=== PATIENT | male | born 1985 | race Caucasian/White ===

== ENCOUNTER 2023-07-16 11:20 | Emergency (ER) | payer SELFPAY ==
[2023-07-16 11:42] VITALS: BP 144/84; PULSE 79; RESP 20; TEMP 37.2; O2SAT 97; BMI 36.0
--- NOTE | 2023-07-16 11:44 | ED_ITS ---
HPI - General Adult General Chief complaint: General Medical Stated complaint: Frequent urination/Back pain Time Seen by Provider: 07/16/23 16:23 History of Present Illness HPI narrative: patient complains of 2 days of very frequent urination, he has had this before in the past and it resolved He denies any burning with urination, there is no discomfort there is no blood in the urine he has had no discharges, no nausea no vomiting no leg swelling no back pain no flank pain Related Data Previous Rx's Medication Instructions Recorded phenazopyridine 200 mg tablet 200 mg PO TID PRN urinary 07/16/23 (Pyridium) frequency #10 tabs Allergies Allergy/AdvReac Type Severity Reaction Status Date / Time No Known Allergies Allergy Unverified 07/16/23 11:40 [facility] Past Medical History Source: nursing notes reviewed Social History Social History Advance Directives: No Advance Directives Information Provided: No Physical Exam ED Vital Signs: Vital Signs - 24 hr 07/16/23 11:42 07/16/23 18:09 Temperature 99 F Pulse Rate 79 75 Respiratory Rate 20 14 Blood Pressure 144/84 H Pulse Oximetry 97 96 Oxygen Delivery Method Room Air Room Air BMI result Body Mass Index 36.0 general appearance is comfortable no acute distress The pharynx is clear with moist mucous membranes Neck is supple Respiratory no distress Abdomen is soft nontender The back no CVA tenderness Genital exam normal Rectal exam the prostate was not tender or enlarged Extremities no edema in legs, full range of motion x4 Skin no rashes Course Course Course Narrative: This is an RME: Additional HPI, ROS, PE not included below will be deferred to primary provider. This is a 24-mmsy-tyn-male, with no known medical problems, presenting to the emergency department with complaints of urinary frequency and right sided back pain x 1 week. No fevers wrist chills. No abdominal pain no dysuria, hematuria. No penile discharge. He is sexually active, no concerns for sexually transmitted infections. Plan: Labs, urine ordered. Patient with main complaint of urinary frequency with some mild low back pain worse with movement UA was normal with no sign of infection back pain was consistent with mild musculoskeletal low back pain there was no CVA tenderness Kidney function was normal, no other acute abnormalities in CBC and chemistry, glucose was normal Prostate exam was normal A postvoid residual was done and it was 90 I am not sure what is the reason for the patient's urinary frequency and he is advised to follow with urologist for further evaluation He refused STD testing as he is monogamous with 1 partner Medical Decision Making Lab Data MDM Lab Attestation statement: I reviewed the patient's lab results. 07/16/23 12:01 07/16/23 12:01 Labs: Lab Results 07/16/23 07/16/23 Range/Units 12:00 12:01 WBC 6.2 (4.8-10.8) X10*3/uL RBC 5.93 H (4.60-5.80) X10*6/uL Hgb 15.5 (14.0-18.0) g/dl Hct 48.2 (42.0-52.0) % MCV 81.3 (80.0-98.0) fL MCH 26.1 L (27.0-33.0) pg MCHC 32.2 (31.0-36.0) g/dl RDW 13.3 (11.0-16.0) % Plt Count 216 (160-400) X10*3/uL MPV 10.7 (9.4-12.4) fL Immature Gran % (Auto) 0.3 (0.0-0.4) % Neut % (Auto) 47.8 (45-73) % Lymph % (Auto) 34.1 (20-40) % [place] % (Auto) 11.0 (2-11) % Eos % (Auto) 5.7 H (0-4) % Baso % (Auto) 1.1 (0-2) % Lymph # (Auto) 2.1 (1.2-4.9) X10*3/uL [place] # (Auto) 0.7 (0.1-1.2) X10*3/uL Eos # (Auto) 0.4 (0.0-0.4) X10*3/uL Baso # (Auto) 0.1 (0.0-0.2) X10*3/uL Abs Immat Gran (auto) 0.02 (0.00-0.03) X10*3/uL Absolute Neuts (auto) 3.0 (2.0-8.3) x10*3/uL Absolute Nucleated RBC 0.000 (0.0-0.012) X10*3/uL Nucleated RBC % (auto) 0.0 (0.0-0.2) /100WBC Sodium 140 (135-145) mmol/L Potassium 4.2 (3.3-5.1) mmol/L Chloride 106 (96-108) mmol/L Carbon Dioxide 30 H (22-29) mmol/L Anion Gap 8 L (12-20) BUN 10 (9-16) mg/dL Creatinine 1.12 (0.5-1.4) mg/dL Estim Creat Clear Calc 108.2 Estimated GFR > 60 Random Glucose 82 (60-115) mg/dL Calcium 9.1 (8.4-10.2) mg/dL Total Bilirubin 0.5 (0.0-1.0) mg/dL Direct Bilirubin 0.1 (0.0-0.5) mg/dL AST 23 (5-37) U/L ALT 42 H (0-40) U/L Alkaline Phosphatase 78 (39-117) U/L Total Protein 7.4 (6.5-8.0) g/dL Albumin 4.2 (3.5-5.0) g/dL Lipase 26 (8-78) U/L Urine Color Yellow Urine Appearance Clear Urine pH 8.5 (5.0-9.0) Ur Specific [place] 1.020 (1.005-1.025) Urine Protein Negative (Neg-Trace) mg/dL Urine Glucose (UA) Negative (Negative) mg/dL Urine Ketones Negative (Negative) mg/dL Urine Blood Negative (Negative) Urine Nitrite Negative (Negative) Ur Leukocyte Esterase Negative (Negative) Discharge Plan Discharge Clinical Impression: Dysuria Patient Disposition: Home, Self-Care Additional Instructions: your urinalysis did not show any sign of infection, your sugar and kidney function were all normal, blood tests were all normal Your physical exam was normal As I am not sure of what is causing the frequent urination follow closely with urologist we will provide a number Return to the ER any time any worse condition or any concerns We will try the medication Macrobid which sometimes helps with bladder irritation and see if it helps her symptoms Prescriptions: New phenazopyridine [Pyridium] 200 mg tablet 200 mg PO TID PRN (Reason: urinary frequency) Qty: 10 0RF Referrals: Dennis Larsen MD [Physician] - ( urinary frequency) Interventions: ED Discharge Assessment Last Done: 07/16/23 18:46 Discharge Date/Time: 07/16/23 18:46
[2023-07-16 12:04] LABS: MANUAL DIFF FLAG NO
[2023-07-16 12:06] LABS: Appearance Urine Clear; Color Urine Yellow; Glucose Urine UA Negative (Negative); Leukocyte Esterase Urine Negative (Negative); Nitrite Urine Negative (Negative); PH 8.5 (5.0-9.0); Urine Blood Negative (Negative); Urine Ketones Negative (Negative); Urine Protein Negative (Neg-Trace)
[2023-07-16 12:18] LABS: Basophils Absolute Auto 0.1 X10*3/uL (0.0-0.2); Basophils Percent Auto 1.1 % (0-2); Eosinophils Absolute Auto 0.4 X10*3/uL (0.0-0.4); Eosinophils Percent Auto 5.7 % (0-4); Hematocrit 48.2 % (42.0-52.0); Hemoglobin 15.5 g/dl (14.0-18.0); Imm Gran Abs Auto 0.02 X10*3/uL (0.00-0.03); Imm Gran Pct Auto 0.3 % (0.0-0.4); Lymphocytes Absolute Auto 2.1 X10*3/uL (1.2-4.9); Lymphocytes Percent Auto 34.1 % (20-40); Mean Corpuscular HGB Conc 32.2 g/dl (31.0-36.0); Mean Corpuscular Hemoglobin 26.1 pg (27.0-33.0); Mean Corpuscular Volume 81.3 fL (80.0-98.0); Mean Platelet Volume 10.7 fL (9.4-12.4); Monocytes Absolute Auto 0.7 X10*3/uL (0.1-1.2); Neutrophils Percent Auto 47.8 % (45-73); Platelet Count 216 X10*3/uL (160-400); Red Blood Count 5.93 X10*6/uL (4.60-5.80); Red Cell Distribution Width 13.3 % (11.0-16.0); White Blood Count 6.2 X10*3/uL (4.8-10.8)
[2023-07-16 12:20] LABS: Alanine Aminotransferase 42 U/L (0-40); Albumin Level 4.2 g/dL (3.5-5.0); Alkaline Phosphatase 78 U/L (39-117); Anion Gap 8 (12-20); Aspartate Amino Transferase 23 U/L (5-37); Bilirubin Direct 0.1 mg/dL (0.0-0.5); Bilirubin Total 0.5 mg/dL (0.0-1.0); Blood Urea Nitrogen 10 mg/dL (9-16); Calcium 9.1 mg/dL (8.4-10.2); Carbon Dioxide 30 mmol/L (22-29); Chloride 106 mmol/L (96-108); Creatinine Clr Calc Pharmacy 108.2; Estimated Glomerular Filt Rate > 60; Glucose Random 82 mg/dL (60-115); Lipase 26 U/L (8-78); Potassium 4.2 mmol/L (3.3-5.1); Sodium 140 mmol/L (135-145); Total Protein 7.4 g/dL (6.5-8.0)
[2023-07-16 18:09] VITALS: PULSE 75; RESP 14; O2SAT 96
--- NOTE | 2023-07-16 18:10 | PC.NURSE ---
this RN did post void trial on patient, result of 97 mls. Tylor VASQUEZ aware
== END 2023-07-16 18:46 | disposition home or self-care (01) ==
PROVIDERS: Physician Assistant Medical; Emergency Provider Emergency Medicine
DX: R30.0 Dysuria (principal); R35.0 Frequency of micturition; M54.50 Low back pain, unspecified; Z79.899 Other long term (current) drug therapy
CPT/HCPCS: 36415; 51798; 80048; 80076; 81003; 83690; 85025; 99283; 99284

== ENCOUNTER 2025-02-18 13:08 | Outpatient (AMB) | payer OTHER, SELFPAY ==
[2025-02-18 13:12] VITALS: BP 124/94; PULSE 89; RESP 20; TEMP 37.1; O2SAT 97; BMI 37.4
--- NOTE | 2025-02-18 13:12 | A.OFFPC_ITS ---
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 Patient reports that he has not had a PCP since 2010, due to lack of insurance. Medical records have not been requested and have not been received. 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 His back pain has been affecting him for several years, noted to be increasingly severe. It recurs daily with notable morning stiffness, compounded by work-related activities. Relief was attempted through critical care technician, which modestly alleviated symptoms but did not resolve the underlying problem. Past investigations lacked imaging confirmation, leaving possible structural causes unexplored. Concurrently, his frequent urination, persistent since childhood, has significant impact on daily living, notably disrupting sleep and contributing to fatigue. While a bladder scan showed partial voiding, no definitive causes have been identified, and urological consultation remains pending. Constant urination: The patient had went to the ED for frequent urination, pvr was 90, refused STD. UA was unremarkable. He referred to Dr. Larsen but did not have insurance at the time Fatigue: reports that he is having random boost of energy that is short-lived each time. Reports that he is not sleeping well, constantly he has to get up to urinate. He also bought a new mattress but his lower back has been tight with constant pain Low back pain: reports that back pain has been going for couple years, but has been increasing. Reports that the back tightness is excruciating. Reports getting zepbound from a family member and he loss 14 pounds and the pain got better. Reports that he start gaining the weight back. [facility] Medical History (Updated 02/20/25 @ 00:44 by DEANNA Esquivel) Low back pain Frequent urination Surgical History No pertinent past surgical history Social History (Updated 02/18/25 @ 13:22 by Elli Paniagua STRIPE MARKER) Household Members: Family Household Members Other:: two children Housing: House Alcohol intake: current Alcohol intake frequency: a few times a week Patient Tobacco Use Status: Never used Tobacco e-Cigarette/Vaping Use: Currently Using service: No Current occupational status: unemployed Cognitive needs: No Hearing needs: No Vision needs: Yes (Glasses) Questionnaire PHQ-9 Over the last 2 weeks, how often have you been bothered by any of the following problems? 1. Little interest or pleasure in doing things: several days 2. Feeling down, depressed, or hopeless: not at all 3. Trouble falling or staying asleep, or sleeping too much: several days 4. Feeling tired or having little energy: nearly every day 5. Poor appetite or overeating: not at all 6. Feeling bad about yourself - or that you are a failure or have let yourself or your family down: not at all 7. Trouble concentrating on things, such as reading the newspaper or watching television: nearly every day 8. Moving or speaking so slowly that other people could have noticed. Or the opposite - being so fidgety or restless that you have been moving around a lot more than usual: several days 9. Thoughts that you would be better off or of hurting yourself in some way: not at all Total score: 9 Depression Screening Interpretation: Positive Depression Screening Done: Yes 87248 - PHQ-9 Billing: Yes Source: Developed by Drs. Rhys Kan, Juani Iglesias, Brandon Hernandes and colleagues, with an educational reno from [email or web address]. Thrive Questionnaire Date Thrive assessed: 02/18/25 I am a: Patient What is your living situation today?: I have a steady place to live Within the past 12 months, did the food you bought not last and you didn't have the money to get more?: Never true Within the past 12 months, did you worry whether your food would run out before you got money to buy more?: Never true Do you have trouble paying for medicines?: I choose not to answer this question Do you have trouble getting transportation to medical appointments?: No Do you have trouble paying your heating and electricity bill?: No Do you have trouble taking care of your child, family member or friend?: No Do you have trouble with day-to-day activities such as bathing, preparing meals, shopping, managing finances, etc.?: No Are you currently unemployed and looking for a job?: Yes Are you interested in more education?: No Please select the resources that you would like help with: None Currently or been in a relationship where the following occur: No concerns reported THRIVE Score: 0 AUDIT C Alcohol Use Questionnaire (AUDIT-C) 2. How many drinks containing alcohol do you have on a typical day when you are drinking?: 3 or 4 3. How often do you have six or more drinks on one occasion?: Never Total Score: 1 Score Reviewed/Action Taken: No DIMITRI-7 AMB Questionnaire DIMITRI-7 Date DIMITRI - 7 assessed: 02/18/25 Feeling nervous, anxious, or on edge: 0 = Not at all Not being able to stop or control worryin = Several days Worrying too much about different things: 1 = Several days Trouble relaxin = Nearly every day Being so restless that it is hard to sit still: 3 = Nearly every day Becoming easily annoyed or irritable: 1 = Several days Feeling afraid as if something awful might happen: 0 = Not at all Total DIMITRI-7 score (0-4 normal; 5-9 mild; 10-14 moderate; 15-21 severe): 9 Source: Developed by Juani Rock Kurt Kroenke and colleagues, with an educational reno from [email or web address]. DIMITRI-7 Assessment Billing DIMITRI-7 Assessment Tool: DIMITRI-7 Assessment 62797 Review of Systems Const Reports fatigue and Denies headache(s) Eyes Denies loss of vision ENT Denies vertigo, Denies dizziness, Denies headache(s) and Denies sore throat Card Denies chest pain, Denies leg edema and Denies lightheadedness Resp Denies cough, Denies hemoptysis and Denies wheezing GI Denies abdominal pain, Denies melena, Denies constipation, Denies diarrhea and Denies vomiting Denies dysuria, Reports urinary frequency, Denies urinary urgency and Reports other (Excessive urine production) Musc Reports back pain, Denies arthralgias, Denies joint swelling, Denies numbness, Reports radiating pain into limb (Right side-medial inner leg to yi) and Denies tingling Neuro Denies Abnormal speech present, Denies behavioral changes, Denies vertigo, Denies dizziness, Denies headache(s), Denies loss of vision, Denies memory loss, Denies numbness and Denies tingling Psych Denies anxiety, Denies behavioral changes, Denies depression, Denies memory loss and Denies panic attacks Endo Reports fatigue Samy/Lymph Denies easy bleeding and Denies easy bruising Aller/Immun Denies wheezing Physical exam (Primary Care) Vital Signs: Last Vital Signs Temp 98.7 F 02/18/25 13:12 Pulse 89 02/18/25 13:12 Resp 20 02/18/25 13:12 BP 124/94 H 02/18/25 13:12 Pulse Ox 97 02/18/25 13:12 Oxygen Delivery Method Room Air 02/18/25 13:12 BMI result Body Mass Index 37.4 Tobacco/Smoking Status: Tobacco use Status Tobacco use date assessed 02/18/25 02/18/25 13:27 Patient Tobacco Use Status Never used Tobacco 02/18/25 13:27 e-Cigarette/Vaping Use Currently Using 02/18/25 13:27 PHQ-9: PHQ-9 Score PHQ-9: Total score 9 02/18/25 14:16 Depression Screening Interpretation: Positive Thrive Assessment: Date of Thrive Assessment Date Thrive assessed 02/18/25 02/18/25 13:27 Currently or been in a relationship where the following occur: No concerns reported Const General: healthy appearing, no acute distress, alert and awake Nutritional Appearance: well nourished Orientation/consciousness: oriented to person, oriented to place and oriented to time HENMT Ears: TM's normal bilaterally General nose exam: Normal nasal mucous membranes and turbinates present Eyes Conjunctivae: conjunctivae normal Sclerae: sclerae normal Pupils: Equal, round and reactive pupils present Neck Neck: Yes no lymphadenopathy and Yes no JVD Thyroid: Thyroid normal Carotids: no bruits Resp Effort & Inspection: normal respiratory effort and not tachypneic Auscultation: no crackles, no rales, no rhonchi and no wheezes Cardio Rate: regular rate Rhythm: regular rhythm Heart sounds: no murmurs and normal S1 and S2 GI Palpation (GI): Soft to palpation, nontender, no hepatomegaly and no splenomegaly Auscultation: normal bowel sounds General: Yes no CVA tenderness Back/Spine/Pelvis Back: no CVA tenderness Thoracic/Lumbar Spine: lumbar spinal tenderness and straight leg raise positive bilateral at 60 degrees Skin General skin exam: no rashes or lesions noted and dry skin Neuro General: oriented to person, oriented to place and oriented to time Cranial nerves: Yes Equal, round and reactive pupils present Speech: No Abnormal speech present Gait exam (Neuro): Normal gait present Motor exam (neuro): no tremor noted Extrem Right upper extremity: full ROM Left upper extremity: full ROM Right lower extremity: full ROM; no edema Left lower extremity: full ROM; no edema Psych Mental Status: mental status grossly normal Speech and movement: Normal speech and movement present Affect: normal affect Attitude: cooperative Thought process: Normal thought process present Coding Level of Care Code New Pt Level 4 (90703) Diagnoses Excessive urine production R35.89 Additional Codes DIMITRI-7 Assessment Billing - DIMITRI-7 Assessment Tool: DIMITRI-7 Assessment 30725 ([id number]) PHQ-9 - 37048 - PHQ-9 Billing: Yes ([id number]) Time Spent (min) 41 Assessment & Plan Assessment & Plan (1) Excessive urine production: Code(s): R35.89 - Other polyuria Category: Medical Plan I will arrange imaging for the lower back to determine structural causes and refer the patient for Urology to investigate frequent urination. In the meantime, Flomax is initiated to address potential bladder dysfunction, with evaluations on current medications and lifestyle modifications prescribed for back pain and weight management. A follow-up session in six weeks will allow for comprehensive review and adjustment of management strategies as needed. Patient was informed and verbally consented to the use of an ambient scribe for clinic note documentation during this visit. Orders: Orders XR lumbar spine 2-3V 02/18/25 M54.50 - Low back pain, unspecified Complete Blood Count Auto Diff 02/18/25 Z00.00 - Encounter for general adult medical examination without abnormal findings Comprehensive [place]. Panel Fast 02/18/25 Z00. - Encounter for general adult medical examination without abnormal findings TSH reflex Free T4 02/18/25 Z00. - Encounter for general adult medical examination without abnormal findings PSA,Total (Free>4and<10) 02/18/25 R35.0 - Frequency of micturition, R53.83 - Other fatigue Testosterone, Free/Total 02/18/25 R35.0 - Frequency of micturition, R53.83 - Other fatigue Lipid Panel 02/18/25 Z00. - Encounter for general adult medical examination without abnormal findings UA CC w/rflx Micro + Cult 02/18/25 Z00. - Encounter for general adult medical examination without abnormal findings Vitamin D 25-OH Total 02/18/25 Z00. - Encounter for general adult medical examination without abnormal findings Erythrocyte Sedimentation Rate 02/18/25 Z00. - Encounter for general adult medical examination without abnormal findings CT NG by PCR 02/18/25 Z00. - Encounter for general adult medical examination without abnormal findings Medications: New tamsulosin (Flomax) 0.4 mg PO DAILY 30 caps 3RF Discontinued phenazopyridine (Pyridium) Discontinued Reason: Patient no longer taking 200 mg PO TID PRN 10 tabs 0RF urinary frequency
== END 2025-02-18 14:28 | disposition home or self-care (01) ==
LOC: HO.HMCH 13:09
DX: R35.89 Other polyuria (principal)

== ENCOUNTER → 2025-02-18 13:08 | Outpatient (BNVA) | payer OTHER, SELFPAY | DX: R35.0 Frequency of micturition (principal); R35.89 Other polyuria; M53.83 Other specified dorsopathies, cervicothoracic region; M54.50 Low back pain, unspecified; G89.29 Other chronic pain | CPT/HCPCS: 96127; 99202 ==

== ENCOUNTER 2025-02-21 10:25 | Outpatient (REF) | payer OTHER, SELFPAY ==
--- NOTE | ~2025-02-21 | XR_ITS ---
EXAMINATION: XR LUMBOSACRAL SPINE CLINICAL INFORMATION: M54.50 - Low back pain, unspecified COMPARISON: None available. TECHNIQUE: Three views of the lumbosacral spine. FINDINGS: There are 5 nonrib-bearing lumbar segments with sacralization of L5 segment. 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 There is minimal mechanical sclerosis along the medial aspects of the pseudoarticulations. There is subtle retrolisthesis at L1-2, L2-3, L4, L4-5. T12-L1: There is mild disc space narrowing. L5-S1: There is moderate disc space narrowing. 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 There is mild mechanical degeneration of the medial aspects of the pseudoarticulations and there is a mildly narrowed L5-S1 disc space Electronically signed by: Francis Lopez MD 02/21/2025 11:17 AM EDT
[2025-02-21 10:46] LABS: MANUAL DIFF FLAG NO
[2025-02-21 11:27] LABS: Basophils Absolute Auto 0.1 X10*3/uL (0.0-0.2); Basophils Percent Auto 1.3 % (0-2); Eosinophils Absolute Auto 0.5 X10*3/uL (0.0-0.4); Eosinophils Percent Auto 8.3 % (0-4); Hematocrit 46.3 % (42.0-52.0); Hemoglobin 15.2 g/dl (14.0-18.0); Imm Gran Abs Auto 0.01 X10*3/uL (0.00-0.03); Imm Gran Pct Auto 0.2 % (0.0-0.4); Lymphocytes Absolute Auto 2.2 X10*3/uL (1.2-4.9); Lymphocytes Percent Auto 41.3 % (20-40); Mean Corpuscular HGB Conc 32.8 g/dl (31.0-36.0); Mean Corpuscular Hemoglobin 26.6 pg (27.0-33.0); Mean Corpuscular Volume 80.9 fL (80.0-98.0); Mean Platelet Volume 11.1 fL (9.4-12.4); Monocytes Absolute Auto 0.5 X10*3/uL (0.1-1.2); Monocytes Percent Auto 9.8 % (2-11); Neutrophils Absolute Auto 2.1 x10*3/uL (2.0-8.3); Neutrophils Percent Auto 39.1 % (45-73); Platelet Count 193 X10*3/uL (160-400); Red Blood Count 5.72 X10*6/uL (4.60-5.80); Red Cell Distribution Width 14.1 % (11.0-16.0); White Blood Count 5.4 X10*3/uL (4.8-10.8)
[2025-02-21 12:02] LABS: Alanine Aminotransferase 43 U/L (0-40); Albumin Level 4.4 g/dL (3.5-5.0); Alkaline Phosphatase 89 U/L (39-117); Anion Gap 11 (12-20); Aspartate Amino Transferase 32 U/L (5-37); Bilirubin Total 0.4 mg/dL (0.0-1.0); Blood Urea Nitrogen 10 mg/dL (9-16); Calcium 9.1 mg/dL (8.4-10.2); Carbon Dioxide 26 mmol/L (22-29); Chloride 109 mmol/L (96-108); Cholesterol 248 mg/dL (<200); Estimated Glomerular Filt Rate > 60; Glucose Fasting 95 mg/dL (60-99); HDL Cholesterol 38 mg/dL (>40); LDL Cholesterol Calculated 188 mg/dL (<100); Potassium 4.3 mmol/L (3.3-5.1); Sodium 142 mmol/L (135-145); Total Protein 7.3 g/dL (6.5-8.0); Triglycerides 114 mg/dL (<150)
[2025-02-21 12:04] LABS: Erythrocyte Sedimentation Rate 5 MM/HR (0-15)
[2025-02-21 12:07] LABS: TSH reflex Free T4 1.92 uIU/mL (0.32-4.0); Vitamin D 25-OH Total 25.5 ng/mL (>30)
[2025-02-21 12:14] LABS: PSA,Total (Free>4and<10) 0.25 ng/mL (0.00-4.00)
[2025-02-21 13:15] LABS: Appearance Urine Clear; Color Urine Yellow; Glucose Urine UA Negative (Negative); Leukocyte Esterase Urine Negative (Negative); Nitrite Urine Negative (Negative); Urine Blood Negative (Negative); Urine Ketones Negative (Negative); Urine Protein Negative (Neg-Trace)
[2025-02-21 14:46] LABS: CT PCR NOT DETECTED (Not Detect.); NG PCR NOT DETECTED (Not Detect.)
[2025-02-26 18:12] LABS: Testosterone, Free 78.2 pg/mL (35.0-155.0); Testosterone, Total 414 ng/dL (250-1100)
== END 2025-02-21 10:26 | disposition home or self-care (01) ==
LOC: HO.LAB 10:25
DX: R35.0 Frequency of micturition (principal); R53.83 Other fatigue; M54.50 Low back pain, unspecified; Z00.00 Encounter for general adult medical examination without abnormal findings
CPT/HCPCS: 72100; 80053; 80061; 81003; 82306; 84153; 84402; 84403; 84443; 85025; 85652; 87491; 87591

== ENCOUNTER → 2025-02-21 10:52 | Outpatient (BNV) | payer OTHER, SELFPAY | PROVIDERS: Visit Provider Radiology Diagnostic Radiology | DX: M54.50 Low back pain, unspecified (principal) | CPT/HCPCS: 72100 ==

== ENCOUNTER 2025-04-01 16:02 | Emergency (ER) | payer OTHER, SELFPAY ==
--- NOTE | ~2025-04-01 | CT_ITS ---
CLINICAL HISTORY: left flank pain CT abdomen and pelvis without contrast Comparison: None provided Findings: No consolidation or effusion. Gallbladder is within normal limits. Mild left hydronephrosis. Solid organs are otherwise within normal limits. Mild left ureteral dilatation. No bowel obstruction, pneumoperitoneum, or pneumatosis. 2 mm distal left ureteral calculus. Normal appendix. The bones are intact. IMPRESSION: Distal left ureteral calculus associated with mild left hydronephrosis. This document has been electronically signed by: Stone Neal MD on 04/01/2025 18:27:33
[2025-04-01 16:05] VITALS: BP 137/96; PULSE 77; RESP 16; TEMP 36.8; O2SAT 99; BMI 36.5
--- NOTE | 2025-04-01 16:05 | ED.GENADULT ---
HPI - General Adult General Chief complaint: Abdominal Pain Stated complaint: left side pains, unable to void Time Seen by Provider: 04/01/25 17:22 Source: patient Mode of arrival: ambulatory Limitations: no limitations History of Present Illness ED Provider: HPI narrative: Patient no significant past medical history noticed sudden onset of left flank and left lower abdominal pain for last 3 hours pain is sharp in nature associated with nausea no vomiting no history of constipation no blood in his stool no hematuria or dysuria no family history of kidney stone patient never had similar pain in the past Related Data Previous Rx's ?Medication ?Instructions ?Recorded tamsulosin 0.4 mg capsule (Flomax) 0.4 mg PO DAILY #30 caps 02/18/25 oxycodone 5 mg tablet 5 mg PO Q6H PRN pain #20 tabs 04/01/25 Allergies Allergy/AdvReac Type Severity Reaction Status Date / Time No Known Allergies Allergy Verified 04/01/25 16:10 Review of Systems Review of Systems: Yes all other systems are reviewed and are negative PMFSH Past Medical History Medical History Low back pain Frequent urination Surgical History No pertinent past surgical history Social History Social History Household Members: Family Household Members Other:: two children Housing: House Alcohol intake: current Alcohol intake frequency: a few times a week Patient Tobacco Use Status: Never used Tobacco Smoked in Last 30 Days: No e-Cigarette/Vaping Use: Currently Using Use of substances other than those prescribed or required for medical reasons: No Advance Directives: No Advance Directives Information Provided: No Do you have a plan to hurt others: No Plan service: No Current occupational status: unemployed Cognitive needs: No Hearing needs: No Vision needs: Yes (Glasses) Physical Exam ED Vital Signs: Vital Signs - 24 hr 04/01/25 16:05 04/01/25 17:54 04/01/25 18:00 Temperature 98.3 F 97.4 F 97.2 F Pulse Rate 77 81 80 Respiratory Rate 16 20 16 Blood Pressure 137/96 H 142/93 H 166/81 H Pulse Oximetry 99 98 97 Oxygen Delivery Method Room Air Room Air Room Air 04/01/25 20:24 04/01/25 20:37 Temperature 97.5 F Pulse Rate 82 82 Respiratory Rate 16 16 Blood Pressure 161/97 H 161/97 H Pulse Oximetry 98 98 Oxygen Delivery Method Room Air BMI result Body Mass Index 36.5 Appearance: Alert. Oriented X3. No acute distress. Eyes: No pallor or icterus ENT: Pharynx normal. Oral Mucosa moist Neck: Normal inspection. Neck supple. CVS: Normal heart rate and rhythm. Pulses normal. Respiratory: No respiratory distress. Equal air entry bilateral, no wheezing/rales/rhonchi Abdomen: Soft and tenderness left lower quadrant no rebound tenderness Bowel sounds are present, no mass palpable, left CVA tenderness Skin: Skin warm and dry. Normal skin color. Normal skin turgor. Extremities: No lower extremity edema. No calf tenderness Neuro: Oriented X 3. No motor deficit. Course Course Course Narrative: RME, this is a rapid medical exam performed by Nas Campos please refer to primary provider for complete H&P- 40-year-old male presents for evaluation of a sudden onset of left flank pain that radiates down to his left lower abdomen. He reports difficulty urinating. Denies any history of kidney stones. Plan for labs, urinalysis and a CT scan of the abdomen pelvis. Medications Administered Discontinued Medications Generic Name Dose Route Start Last Admin Trade Name Freq PRN Reason Stop Dose Admin Sodium Chloride 1,000 mls @ 999 mls/hr 04/01/25 17:28 04/01/25 19:13 Ns IV 04/01/25 18:28 Infused .Q1H1M ONE Infusion Ketorolac Tromethamine 30 mg 04/01/25 18:39 04/01/25 19:26 Ketorolac Tromethamine 30 Mg/Ml Vial IVPUSH 04/01/25 18:40 30 mg ONCE ONE Administration Morphine Sulfate 4 mg 04/01/25 17:28 04/01/25 17:53 Morphine Sulfate 4 Mg/Ml Cartridge IVPUSH 04/01/25 17:29 4 mg ONCE ONE Administration Protocol Ondansetron HCl 4 mg 04/01/25 17:28 04/01/25 17:53 Ondansetron Hcl 4 Mg/2 Ml Vial IVPUSH 04/01/25 17:29 4 mg ONCE ONE Administration Oxycodone HCl 10 mg 04/01/25 20:09 04/01/25 20:36 Oxycodone Hcl Immed Release 5 Mg Tablet PO 04/01/25 20:10 Not Given ONCE ONE Tamsulosin HCl 0.4 mg 04/01/25 18:40 04/01/25 19:26 Tamsulosin Hcl 0.4 Mg Capsule PO 04/01/25 18:41 0.4 mg ONCE ONE Administration Medical Decision Making Medical Decision Making [facility] Narrative: Patient with small 2 mm left UvJ stone improved after IV fluids and pain medication discharge patient home advised to follow up with urologist Lab Data [facility] Lab Attestation statement: I reviewed the patient's lab results. 04/01/25 16:29 04/01/25 16:29 Labs: Lab Results 04/01/25 Range/Units 16:29 WBC 8.9 (4.8-10.8) X10*3/uL RBC 5.91 H (4.60-5.80) X10*6/uL Hgb 15.6 (14.0-18.0) g/dl Hct 47.6 (42.0-52.0) % MCV 80.5 (80.0-98.0) fL MCH 26.4 L (27.0-33.0) pg MCHC 32.8 (31.0-36.0) g/dl RDW 13.6 (11.0-16.0) % Plt Count 238 (160-400) X10*3/uL MPV 11.0 (9.4-12.4) fL Immature Gran % (Auto) 0.2 (0.0-0.4) % Neut % (Auto) 47.1 (45-73) % Lymph % (Auto) 37.5 (20-40) % [place] % (Auto) 10.0 (2-11) % Eos % (Auto) 4.3 H (0-4) % Baso % (Auto) 0.9 (0-2) % Lymph # (Auto) 3.3 (1.2-4.9) X10*3/uL [place] # (Auto) 0.9 (0.1-1.2) X10*3/uL Eos # (Auto) 0.4 (0.0-0.4) X10*3/uL Baso # (Auto) 0.1 (0.0-0.2) X10*3/uL Abs Immat Gran (auto) 0.02 (0.00-0.03) X10*3/uL Absolute Neuts (auto) 4.2 (2.0-8.3) x10*3/uL Absolute Nucleated RBC 0.000 (0.0-0.012) X10*3/uL Nucleated RBC % (auto) 0.0 (0.0-0.2) /100WBC Sodium 146 H (135-145) mmol/L Potassium 3.5 (3.3-5.1) mmol/L Chloride 110 H (96-108) mmol/L Carbon Dioxide 25 (22-29) mmol/L Anion Gap 15 (12-20) BUN 13 (9-16) mg/dL Creatinine 1.14 (0.5-1.4) mg/dL Estim Creat Clear Calc 98.6 Estimated GFR > 60 Random Glucose 105 (60-115) mg/dL Calcium 9.1 (8.4-10.2) mg/dL Urine Color Yellow Urine Appearance Clear Urine pH 5.5 (5.0-9.0) Ur Specific [place] >= 1.030 H (1.005-1.025) Urine Protein 30 (1+) H (Neg-Trace) mg/dL Urine Glucose (UA) Negative (Negative) mg/dL Urine Ketones Trace (Negative) mg/dL Urine Blood Negative (Negative) Urine Nitrite Negative (Negative) Ur Leukocyte Esterase Negative (Negative) Urine RBC 0-2 (0-2) /HPF Urine WBC 0-5 (0-5) /HPF Ur Squamous Epith Cells 0-2 (0-2) /HPF Urine Bacteria None Seen (None Seen) Hyaline Casts 3-5 (0-2) /LPF Independent Interpretation I performed an independent interpretation of an: CT Scan Radiology Impression Discussion of test interpretation with radiology: I have reviewed the radiologist's reading. Discharge Plan Discharge Clinical Impression: Calculus of distal left ureter Patient Disposition: Home, Self-Care Instructions: Ureteral Stones (ED) Additional Instructions: Drink plenty of fluids, decrease nataly containing oxalate Pain medication as prescribed Continue your tamsulosin Follow up with urologist Report to the ER if worsening pain Prescriptions: New oxycodone 5 mg tablet 5 mg PO Q6H PRN (Reason: pain) Qty: 20 0RF Rx Instructions: Partial Fill upon patient request. No Action tamsulosin [Flomax] 0.4 mg capsule 0.4 mg PO DAILY Qty: 30 3RF Referrals: Dennis Larsen MD [Physician, Urology] Referral Note: Left ureteric stone Interventions: ED Discharge Assessment Last Done: 04/01/25 20:37 Discharge Date/Time: 04/01/25 20:37 Print Language: Swiss
[2025-04-01 16:42] LABS: MANUAL DIFF FLAG NO
[2025-04-01 16:47] LABS: Appearance Urine Clear; Glucose Urine UA Negative (Negative); PH 5.5 (5.0-9.0); Specific Gravity - Urine >= 1.030 (1.005-1.025); UMIC TRIGGER UACC YES
[2025-04-01 16:49] LABS: Hematocrit 47.6 % (42.0-52.0); Hemoglobin 15.6 g/dl (14.0-18.0); Imm Gran Abs Auto 0.02 X10*3/uL (0.00-0.03); Imm Gran Pct Auto 0.2 % (0.0-0.4); Lymphocytes Absolute Auto 3.3 X10*3/uL (1.2-4.9); Mean Corpuscular HGB Conc 32.8 g/dl (31.0-36.0); Mean Corpuscular Hemoglobin 26.4 pg (27.0-33.0); Mean Corpuscular Volume 80.5 fL (80.0-98.0); NRBC Abs Auto 0.000 X10*3/uL (0.0-0.012); NRBC Pct Auto 0.0 /100WBC (0.0-0.2); Platelet Count 238 X10*3/uL (160-400); Red Blood Count 5.91 X10*6/uL (4.60-5.80); White Blood Count 8.9 X10*3/uL (4.8-10.8)
[2025-04-01 16:55] LABS: Anion Gap 15 (12-20); Blood Urea Nitrogen 13 mg/dL (9-16); Calcium 9.1 mg/dL (8.4-10.2); Carbon Dioxide 25 mmol/L (22-29); Chloride 110 mmol/L (96-108); Creatinine Clr Calc Pharmacy 98.6; Estimated Glomerular Filt Rate > 60; Potassium 3.5 mmol/L (3.3-5.1); Sodium 146 mmol/L (135-145)
[2025-04-01 17:54] VITALS: BP 142/93; PULSE 81; RESP 20; TEMP 36.3; O2SAT 98
[2025-04-01 18:00] VITALS: BP 166/81; PULSE 80; RESP 16; TEMP 36.2; O2SAT 97
--- NOTE | 2025-04-01 18:37 | PC.NURSE ---
states pain is no better MD aware
[2025-04-01 20:24] VITALS: BP 161/97; PULSE 82; RESP 16; O2SAT 98
[2025-04-01 20:37] VITALS: BP 161/97; PULSE 82; RESP 16; TEMP 36.4; O2SAT 98
== END 2025-04-01 20:37 | disposition home or self-care (01) ==
PROVIDERS: Physician Assistant; Emergency Provider Internal Medicine
DX: N20.1 Calculus of ureter (principal); R10.32 Left lower quadrant pain; R33.9 Retention of urine, unspecified; R11.0 Nausea; Z79.899 Other long term (current) drug therapy
CPT/HCPCS: 36415; 74176; 80048; 81001; 85025; 96361; 96374; 96375; 99284; J1885; J2270; J2405

== ENCOUNTER → 2025-04-01 16:05 | Outpatient (BNV) | payer OTHER, SELFPAY | PROVIDERS: Emergency Provider Internal Medicine; Visit Provider Radiology Diagnostic Radiology | DX: N20.0 Calculus of kidney (principal) | CPT/HCPCS: 74176 ==

== ENCOUNTER 2025-05-16 13:03 | Outpatient (AMB) | payer OTHER, SELFPAY ==
--- NOTE | 2025-05-16 13:16 | MHC.PC.OV ---
Vital Signs 05/16/25 13:17 05/16/25 13:51 Height 5 ft 6 in Weight 228 lb 8 oz BMI 36.9 BP 130/72 144/96 H Blood Pressure Location Lt brachial Lt brachial Position Sitting Sitting Pulse 97 Pulse Source Pulse Oximeter Temp 97.3 F Temp Source Temporal Artery Scan Pulse Oximetry (%) 96 Oxygen Delivery Method Room Air Intake Visit Reasons: Annual Exam Intake Note: Patient is here today for a physical. 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 Operator: Not Required per policy Accompanied by: Self / Same As Patient Allergies No Known Allergies Allergy (Verified 05/16/25 13:46) Medication List - Last Reconciled 05/16/25 by DEANNA Esquivel cholecalciferol (vitamin D3) 50 mcg PO DAILY rosuvastatin 5 mg PO DAILY tamsulosin (Flomax) 0.4 mg PO DAILY Tobacco use date assessed: 05/16/25 Dental Screening Dental Screen Date: 02/18/25 HPI Annual Exam HPI Details The patient presenting for annual physical Dentist: up to date Eye: have an appt Snellen: Right: Left: Corrected vision: glasses STI screening: Colonoscopy: last year, ok Pap Smer:n/a PHQ-9: Flu: Does not usually take this COVID: x2 Tdap: up to date Diet:regular Exercise: The patient is a 40-year-old male presenting with back pain and hypertension. The back pain has been persistent and significantly impacts daily activities, including playing with his children and performing routine tasks. The patient reports that the pain is severe enough to prevent him from playing softball and causes difficulty in getting up from a seated position. He has been experiencing this pain for a long time, and it worsens with prolonged sitting or lying down. The patient has a history of hypertension, which has been running high despite lifestyle modifications such as reducing sugar and fried foods. He is currently not on any blood pressure medication, although he has been prescribed amlodipine recently. His blood pressure readings have been higher than ideal, with recent measurements showing 144/90 mmHg. The patient also has hypercholesterolemia and is on cholesterol medication. He has been advised to continue with the current medication and lifestyle changes, with a follow-up planned to reassess cholesterol levels. Additionally, the patient reported a recent episode of kidney stones, which prompted dietary changes to reduce sugar and fried food intake. [facility] Medical History Low back pain Frequent urination Surgical History No pertinent past surgical history Social History Household Members: Family Household Members Other:: two children Housing: House Alcohol intake: current Alcohol intake frequency: a few times a week Patient Tobacco Use Status: Never used Tobacco e-Cigarette/Vaping Use: Currently Using Second Hand Smoke Exposure: No service: No Current occupational status: unemployed Cognitive needs: No Hearing needs: No Vision needs: Yes (Glasses) Questionnaire Thrive Questionnaire Date Thrive assessed: 02/18/25 I am a: Patient What is your living situation today?: I have a steady place to live Within the past 12 months, did the food you bought not last and you didn't have the money to get more?: Never true Within the past 12 months, did you worry whether your food would run out before you got money to buy more?: Never true Do you have trouble paying for medicines?: I choose not to answer this question Do you have trouble getting transportation to medical appointments?: No Do you have trouble paying your heating and electricity bill?: No Do you have trouble taking care of your child, family member or friend?: No Do you have trouble with day-to-day activities such as bathing, preparing meals, shopping, managing finances, etc.?: No Are you currently unemployed and looking for a job?: Yes Are you interested in more education?: No Please select the resources that you would like help with: None Currently or been in a relationship where the following occur: No concerns reported THRIVE Score: 0 DIMITRI-7 AMB Questionnaire DIMITRI-7 Date DIMITRI - 7 assessed: 02/18/25 Source: Developed by Drs. Rhys Kan, Juani Iglesias, Brandon Hernandes and colleagues, with an educational reno from [employer]. Review of Systems Const Denies headache(s) Eyes Denies loss of vision ENT Denies vertigo, Denies dizziness, Denies headache(s) and Denies sore throat Card Denies chest pain, Denies leg edema and Denies lightheadedness Resp Denies cough, Denies hemoptysis and Denies wheezing GI Denies abdominal pain, Denies melena, Denies constipation, Denies diarrhea and Denies vomiting Denies dysuria, Denies urinary frequency and Denies urinary urgency Musc Reports back pain, Denies arthralgias, Denies joint swelling, Denies numbness and Denies tingling Neuro Denies Abnormal speech present, Denies behavioral changes, Denies vertigo, Denies dizziness, Denies headache(s), Denies loss of vision, Denies memory loss, Denies numbness and Denies tingling Psych Denies anxiety, Denies behavioral changes, Denies depression, Denies memory loss and Denies panic attacks Samy/Lymph Denies easy bleeding and Denies easy bruising Aller/Immun Denies wheezing Physical exam (Primary Care) Vital Signs: Last Vital Signs Temp 97.3 F 05/16/25 13:17 Pulse 97 05/16/25 13:17 BP 144/96 H 05/16/25 13:51 Pulse Ox 96 05/16/25 13:17 Oxygen Delivery Method Room Air 05/16/25 13:17 BMI result Body Mass Index 36.9 Tobacco/Smoking Status: Tobacco use Status Tobacco use date assessed 05/16/25 05/16/25 13:22 Patient Tobacco Use Status Never used Tobacco 05/16/25 13:22 e-Cigarette/Vaping Use Currently Using 05/16/25 13:22 Thrive Assessment: Date of Thrive Assessment Date Thrive assessed 02/18/25 05/16/25 13:22 Currently or been in a relationship where the following occur: No concerns reported Const General: healthy appearing, no acute distress, alert and awake Nutritional Appearance: well nourished Orientation/consciousness: oriented to person, oriented to place and oriented to time [facility] Ears: TM's normal bilaterally General nose exam: Normal nasal mucous membranes and turbinates present Eyes Conjunctivae: conjunctivae normal Sclerae: sclerae normal Pupils: Equal, round and reactive pupils present Neck Neck: Yes no lymphadenopathy and Yes no JVD Thyroid: Thyroid normal Carotids: no bruits Resp Effort & Inspection: normal respiratory effort and not tachypneic Auscultation: no crackles, no rales, no rhonchi and no wheezes Cardio Rate: regular rate Rhythm: regular rhythm Heart sounds: no murmurs and normal S1 and S2 GI Palpation (GI): Soft to palpation, nontender, no hepatomegaly and no splenomegaly Auscultation: normal bowel sounds General: Yes CVA tenderness Back/Spine/Pelvis Back: CVA tenderness Thoracic/Lumbar Spine: lumbar spinal tenderness Skin General skin exam: no rashes or lesions noted and dry skin Neuro General: oriented to person, oriented to place, oriented to time and CN's II-XI intact bilaterally Cranial nerves: Yes Equal, round and reactive pupils present Speech: No Abnormal speech present Gait exam (Neuro): Normal gait present Motor exam (neuro): no tremor noted Deep tendon reflexes (DTR's): Right triceps reflex intensity grade: 2+, Left triceps reflex intensity grade: 2+, Rt Biceps (C5, C6): 2+, Left biceps reflex intensity grade: 2+, Right brachioradialis reflex intensity grade: 2+, Left brachioradialis reflex intensity grade: 2+, Right patellar reflex intensity grade: 2+ and Left patellar reflex intensity grade: 2+ Extrem Right upper extremity: full ROM Left upper extremity: full ROM Right lower extremity: full ROM; no edema Left lower extremity: full ROM; no edema Psych Mental Status: mental status grossly normal Speech and movement: Normal speech and movement present Affect: normal affect Attitude: cooperative Thought process: Normal thought process present Results Reviewed Results Reviewed: Laboratory Tests 02/21/25 04/01/25 10:44 16:29 WBC 8.9 RBC 5.91 H Hgb 15.6 Hct 47.6 MCV 80.5 MCH 26.4 L MCHC 32.8 RDW 13.6 Plt Count 238 MPV 11.0 Sodium 146 H Potassium 3.5 Chloride 110 H Carbon Dioxide 25 Anion Gap 15 BUN 13 Creatinine 1.14 Estim Creat Clear Calc 98.6 Estimated GFR > 60 Random Glucose 105 Calcium 9.1 Total Bilirubin 0.4 AST 32 ALT 43 H Alkaline Phosphatase 89 Total Protein 7.3 Albumin 4.4 Triglycerides 114 Cholesterol 248 H LDL Cholesterol, Calc 188 H HDL Cholesterol 38 L Total PSA 0.25 25-OH Vitamin D Total 25.5 L TSH 1.92 Total Testosterone 414 Fr Testosterone Dialys 78.2 Urine Color Yellow Urine Appearance Clear Urine pH 5.5 Ur Specific [place] >= 1.030 H Urine Protein 30 (1+) H Urine Glucose (UA) Negative Urine Ketones Trace Urine Blood Negative Urine Nitrite Negative Ur Leukocyte Esterase Negative Urine RBC 0-2 Urine WBC 0-5 Ur Squamous Epith Cells 0-2 Urine Bacteria None Seen Hyaline Casts 3-5 Coding Level of Care Code Est Pt Prev Care 18-39y([id number]) Diagnoses Annual physical exam Z00.00 Fatigue, unspecified type R53.83 Fatigue type: unspecified Bilateral low back pain with bilateral sciatica, unspecified chronicity M54.42; M54.41 Chronicity: unspecified Back pain laterality: bilateral Sciatica presence: with sciatica Sciatica laterality: bilateral sciatica Elevated red blood cell count R71.8 Frequent urination R35.0 Vitamin D deficiency E55.9 Excessive urine production R35.89 Hyperlipidemia, unspecified hyperlipidemia type E78.5 Hyperlipidemia type: unspecified Spinal stenosis, lumbar region with neurogenic claudication M48.062 Time Spent (min) 39 Assessment & Plan Assessment & Plan (1) Annual physical exam: Code(s): Z00.00 - Encounter for general adult medical examination without abnormal findings Category: Medical Plan: Preventive guidelines and recent labs reviewed with the patient. Patient is a 40-year-old male presenting for annual physical. He is up-to-date on dental examination and has an appointment for eye exam coming up. Patient had a colonoscopy last year. (2) Fatigue: Code(s): R53.83 - Other fatigue Category: Medical Qualifiers: Fatigue type: unspecified Qualified Code(s): R53.83 - Other fatigue Plan: Patient reports fatigue on previous visit. Labs completed The patient testosterone was within normal limits. Vitamin-D mildly low and vitamin-D supplements started. The patient isn't anemic and his thyroid function is within normal limits. We will continue to monitor (3) Low back pain: Code(s): M54.50 - Low back pain, unspecified Category: Medical Qualifiers: Chronicity: unspecified Back pain laterality: bilateral Sciatica presence: with sciatica Sciatica laterality: bilateral sciatica Qualified Code(s): M54.42 - Lumbago with sciatica, left side; M54.41 - Lumbago with sciatica, right side Plan: Ongoing lower back pain found to have a mildly narrow space between L5 and S1. PT eval placed. Patient also have a kidney stone and is waiting to see Urology (4) Elevated red blood cell count: Code(s): R71.8 - Other abnormality of red blood cells Category: Medical Plan: RBCs slightly elevated. Increase fluid hydration. We will repeat this in 3 months (5) Frequent urination: Code(s): R35.0 - Frequency of micturition Category: Medical Plan: Patient was found to have kidney stones in ED. Patient was started on Flomax. Increase fluids. (6) Vitamin D deficiency: Code(s): E55.9 - Vitamin D deficiency, unspecified Category: Medical Plan: Continue vitamin-D supplement (7) Excessive urine production: Code(s): R35.89 - Other polyuria Category: Medical Plan: Patient went into the emergency room on 04/01/2025 for left flank pain and abdominal pain CT of the abdomen and pelvis showed small 2 mm left ureter stone improved after IV fluids and pain medication patient was discharged and referred to Urology (8) HLD (hyperlipidemia): Code(s): E78.5 - Hyperlipidemia, unspecified Category: Medical Qualifiers: Hyperlipidemia type: unspecified Qualified Code(s): E78.5 - Hyperlipidemia, unspecified Plan: Triglycerides 114, total cholesterol 248, LDL 188, HDL 38 Discussed lifestyle modifications including dietary changes and physical activity We will repeat lipid panel in 3 months (9) Spinal stenosis, lumbar region with neurogenic claudication: Code(s): M48.062 - Spinal stenosis, lumbar region with neurogenic claudication Category: Medical Plan: Patient had lumbar x-ray done on 02/21/2025 that showed transitional L5 vertebral body. 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 There is mild mechanical degeneration of the medial aspects of the pseudoarticulation and there is mildly narrowed L5 to S1 disc space. The patient was offered to be referred to physical therapy but wanted to hold off. He is reporting severe pain with activity now and is considering physical therapy and also would like to be referred to neuro spine for evaluation. Orders: Orders Lipid Panel 3 Months E78.5 - Hyperlipidemia, unspecified, M54.50 - Low back pain, unspecified, R53.83 - Other fatigue, R71.8 - Other abnormality of red blood cells UA CC w/rflx Micro + Cult 3 Months E78.5 - Hyperlipidemia, unspecified, M54.50 - Low back pain, unspecified, R53.83 - Other fatigue, R71.8 - Other abnormality of red blood cells Complete Blood Count Auto Diff 3 Months E78.5 - Hyperlipidemia, unspecified, M54.50 - Low back pain, unspecified, R53.83 - Other fatigue, R71.8 - Other abnormality of red blood cells Vitamin D 25-OH Total 3 Months E55.9 - Vitamin D deficiency, unspecified PT Evaluation and Treatment Today M48.062 - Spinal stenosis, lumbar region with neurogenic claudication, M54.41 - Lumbago with sciatica, right side, M54.42 - Lumbago with sciatica, left side TSH reflex Free T4 3 Months E78.5 - Hyperlipidemia, unspecified, M54.50 - Low back pain, unspecified, R53.83 - Other fatigue, R71.8 - Other abnormality of red blood cells Comprehensive [place]. Panel Fast 3 Months E78.5 - Hyperlipidemia, unspecified, M54.50 - Low back pain, unspecified, R53.83 - Other fatigue, R71.8 - Other abnormality of red blood cells Referrals Neuro Spine Referral M48.062 - Spinal stenosis, lumbar region with neurogenic claudication, M54.41 - Lumbago with sciatica, right side, M54.42 - Lumbago with sciatica, left side Medications: New amlodipine 5 mg PO DAILY 60 tabs 2RF
[2025-05-16 13:17] VITALS: BP 130/72; PULSE 97; TEMP 36.3; O2SAT 96; BMI 36.9
[2025-05-16 13:51] VITALS: BP 144/96
== END 2025-05-16 14:25 | disposition home or self-care (01) ==
LOC: HO.HMCH 13:03
DX: Z00.00 Encounter for general adult medical examination without abnormal findings (principal); R53.83 Other fatigue; M54.42 Lumbago with sciatica, left side; M54.41 Lumbago with sciatica, right side; R71.8 Other abnormality of red blood cells; R35.0 Frequency of micturition; E55.9 Vitamin D deficiency, unspecified; R35.89 Other polyuria; E78.5 Hyperlipidemia, unspecified; M48.062 Spinal stenosis, lumbar region with neurogenic claudication

== ENCOUNTER → 2025-05-16 13:03 | Outpatient (BNVA) | payer OTHER, SELFPAY | DX: Z00.00 Encounter for general adult medical examination without abnormal findings (principal); E78.00 Pure hypercholesterolemia, unspecified; I10 Essential (primary) hypertension; R53.83 Other fatigue; M54.42 Lumbago with sciatica, left side; M54.41 Lumbago with sciatica, right side; R71.8 Other abnormality of red blood cells; R35.0 Frequency of micturition; E55.9 Vitamin D deficiency, unspecified; R35.89 Other polyuria; E78.5 Hyperlipidemia, unspecified; M48.062 Spinal stenosis, lumbar region with neurogenic claudication | CPT/HCPCS: 99395 ==

== ENCOUNTER 2025-05-20 10:17 | Outpatient (AMB) | payer OTHER, SELFPAY ==
[2025-05-20 10:54] VITALS: BMI 36.8
--- NOTE | 2025-05-20 10:54 | A.SPINEOV_ITS ---
Vital Signs 05/20/25 10:54 Height 5 ft 6 in Weight 228 lb BMI 36.8 Intake Visit Reasons: LBP Intake Note: Mr. Cortez is here today c/o low back pain that radiates down the left leg causing numbness and tingling. Web Press Roll Tender Required: No Allergies No Known Allergies Allergy (Verified 05/20/25 10:54) Physical Exam Vital Signs: BMI result Body Mass Index 36.8 Assessment & Plan Assessment & Plan (1) Low back pain: Code(s): M54.50 - Low back pain, unspecified Category: Medical Qualifiers: Chronicity: unspecified Back pain laterality: bilateral Sciatica presence: with sciatica Sciatica laterality: bilateral sciatica Qualified Code(s): M54.42 - Lumbago with sciatica, left side; M54.41 - Lumbago with sciatica, right side Plan Dear Freeman, Thank you for referring Mr Cortez to our office today. He is a 40-year-old male who has had chronic low back pain going on since 2018. He is generally very active and has unfortunately not been able to participate many of the activities he enjoys such as softball and playing in the [employer] with his children. He localizes the pain over his lower lumbar area it will go into the left sacroiliac area and will radiate down into his left posterolateral thigh. It is aggravated with standing and walking or going from a seated to a standing position. It also bothers him at night. He has tried hpkh-aom-jectdqm pain medications with things like Tylenol and Motrin etc.. He has been to a chiropractor now for a number of months but that unfortunately was not working a nd was becoming cost prohibitive. He comes in today for evaluation with lumbar x-ray and CT scan showing some mild degenerative changes of the lumbar spine. PMH: History of plantar fasciitis, hypertension, hyperlipidemia but other than that he tells me he is healthy Social hx: Does not smoke, drink use any recreational drugs Medications: He takes Crestor, Flomax an amlodipine Allergies: None Physical exam: Localizes pain over the lower lumbar area radiating over to the SI joint and down into the posterolateral thigh, strength and reflexes normal Imaging review: Abdominal CT and lumbar x-ray reviewed. Both done at [facility]. 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 Impression: 40-year-old male with chronic low back pain getting steadily worse, unable to participate in activities he finds meaningful secondary to the pain. He also has a lot of trouble standing and walking or prolonged sitting. Trouble sleeping at night as well. He has tried strf-trw-zftftwo pain medications, healthcare facility administrator as well as activity modifications. I am going to order an MRI to evaluate more closely the x-ray and CT findings. Thank you for allowing us to care for your patient. The total time spent with this visit with this patient was 45 minutes reviewing history, physical exam, lumbar CT and x-ray imaging review, and implementation of treatment plan or further diagnostic testing Gil Sorto MD,PhD [facility] Orders: Orders MR lumbar spine wo con Today M54.41 - Lumbago with sciatica, right side, M54.42 - Lumbago with sciatica, left side Coding Level of Care Code New Pt Level 4 (21272) Diagnoses Bilateral low back pain with bilateral sciatica, unspecified chronicity M54.42; M54.41 Chronicity: unspecified Back pain laterality: bilateral Sciatica presence: with sciatica Sciatica laterality: bilateral sciatica
== END 2025-05-20 11:37 | disposition home or self-care (01) ==
LOC: HO.HNS 10:18
PROVIDERS: Visit Provider Physician Assistant
DX: M54.42 Lumbago with sciatica, left side (principal); M54.41 Lumbago with sciatica, right side
CPT/HCPCS: 99204

== ENCOUNTER → 2025-05-20 10:17 | Outpatient (BNVA) | payer OTHER, SELFPAY | PROVIDERS: Visit Provider Physician Assistant | DX: M54.42 Lumbago with sciatica, left side (principal); M54.41 Lumbago with sciatica, right side | CPT/HCPCS: 99202 ==

== ENCOUNTER → 2025-06-16 08:56 | Outpatient (BNVA) | payer OTHER, SELFPAY | DX: I10 Essential (primary) hypertension (principal) | CPT/HCPCS: 99211 ==

== ENCOUNTER 2025-07-05 10:16 | Outpatient (AMB) | payer OTHER, SELFPAY ==
--- NOTE | 2025-07-05 10:19 | MHC.OFFVIS ---
Intake Visit Reasons: kidney stone Intake Note: New Patient is present for Kidney stones Urology Rx: Tamsulosin,VIT-D3 Blood Thinners: none Imaging completed: Abd CT 04/01/25 Labs done 02/21/25 Total PSA 0.25, Total Testosterone 414, Fr Testosterone 78.2 Implant Coordinator Required: No Accompanied by: Self / Same As Patient Allergies No Known Allergies Allergy (Verified 05/20/25 10:54) HPI Comments Details: Mayuri is a pleasant male. He is seen for the following urologic conditions - nephrolithiasis Seen in emergency room 04/01 distal left 2 mm stone No other stone noted Had been drinking soda every day whilst at work and energy during Has switched to water Has lost 8 lb since doing this Testosterone labs ordered by PCP Does have dyslipidemia with lower normal total testosterone but adequate free testosterone Would encourage 10-15 lb weight loss PFSH Medical History Low back pain Frequent urination Surgical History No pertinent past surgical history Social History Household Members: Family Household Members Other:: two children Housing: House Alcohol intake: current Alcohol intake frequency: a few times a week Patient Tobacco Use Status: Never used Tobacco e-Cigarette/Vaping Use: Currently Using Second Hand Smoke Exposure: No service: No Current occupational status: unemployed Cognitive needs: No Hearing needs: No Vision needs: Yes (Glasses) Review of Systems Const Denies chills and Denies fever(s) Card Reports no additional complaints and Denies syncope Resp Denies cough GI Denies abdominal pain and Denies heartburn Reports as per HPI and Denies change in libido Neuro Denies syncope Psych Denies change in libido Endo Denies change in libido Physical Exam Const General: cooperative, healthy appearing, comfortable and no acute distress Orientation/consciousness: patient oriented x3 HEENT Face and sinus: Yes normal facial exam Mouth: moist mucous membranes Neck Neck: Yes normal visual inspection, Yes full ROM and Yes trachea midline Chest Chest palpation & inspection: normal inspection of the chest Resp Effort & Inspection: normal respiratory effort, able to speak in complete sentences and no respiratory distress GI Inspection: Yes normal to inspection Back/Spine/Pelvis Cervical Spine: normal cervical lordosis Thoracic/Lumbar Spine: thoracic and lumbar spine normal to inspection Skin General skin exam: no rashes or lesions noted Neuro General: patient oriented x3, gait normal, tone normal and moves all extremities Extrem General: Yes normal to inspection and Yes capillary refill normal Assessment & Plan Assessment & Plan (1) Left nephrolithiasis: Code(s): N20.0 - Calculus of kidney Category: Medical Plan Six-month follow-up renal ultrasound Patient Instructions: This note is constructed using voice recognition software. While every effort has been made to ensure accuracy dipper operator errors may have been included. Imaging studies, laboratory and physical exam results were discussed and reviewed in detail. No major barriers to patient understanding were identified. An opportunity to ask questions regarding the treatment plan was provided. All questions were answered. The patient expressed understanding and agreement with the above treatment plan. The patient is aware they should contact our office by phone for worsening of their current condition or the appearance of new urologic symptoms. Compliance is encouraged with any medications and followup testing that is ordered. It is a privilege to participate in the urologic care of your patient. If you have any questions or concerns regarding treatment for the above conditions, or other urologic issues, please do not hesitate to contact me. The office telephone contact is [phone]. Sincerely, Dr Dennis Larsen MD, [facility] - Urology Compassionate Specialist Care for the Genitourinary System Coding Level of Care Code New Pt Level 3 (42505) Diagnoses Left nephrolithiasis N20.0
== END 2025-07-05 11:19 | disposition home or self-care (01) ==
LOC: HO.HUSH 10:17
PROVIDERS: Visit Provider Urology
DX: N20.0 Calculus of kidney (principal)
CPT/HCPCS: 99203

== ENCOUNTER → 2025-07-05 10:16 | Outpatient (BNVA) | payer OTHER, SELFPAY | PROVIDERS: Visit Provider Urology | DX: N20.0 Calculus of kidney (principal) | CPT/HCPCS: 99202 ==

== ENCOUNTER 2025-07-27 10:00 | Outpatient (RCR) | payer OTHER, SELFPAY ==
--- NOTE | 2025-06-29 10:37 | MHC.PT.EP ---
[facility] [place] Office [place] Office [place] Office [address] Sandra Greene [address] [phone] F: [phone] F: [phone] F: [phone] F: [phone] Physical Therapy Plan of Care Date of Evaluation: 06/29/25 Date of Surgery: n/a Diagnosis: LBP Assessment: Patient is a 40 year old male presenting to PT with complaints of pain in his low back. Pt reports onset of pain began about 4 years ago due to playing softball. He presents today with impairments in pain, lumbar ROM, radicular sx, hip strength. Pt's current occupation is none due to being layed off, with baseline physical activities including sitting, ambulating, ADLs, household duties, work. Pt expresses intermediate designer goal of reducing pain, and is motivated to work towards this in PT. Clinical presentation today is most consistent with signs and sx associated with low back pain and pt will benefit from skilled PT 2 week x 4 weeks to address the following problems and impairments noted upon evaluation: pain, lumbar ROM, radicular sx, hip strength. These problems limit the patient with the following functional activities: sitting, ambulating, ADLs, household duties, work. The prescribed treatment plan of care is medically necessary. Co-morbidities of HTN were identified and taken into considerations of plan of care. Pt was educated on HEP, role of PT, prognosis, POC. Frequency and Duration: The patient will be seen 2 x week x 4 weeks Short Term Goals: Pt will demonstrate improved hip MMT strength by 1/3 grade in 2 weeks. Pt will demonstrate centralization of sx in 2 weeks. Pt will demonstrate ability to move through available lumbar ROM with min to no pain in 2 weeks. Bedspread Inspector Goals: Pt will demonstrate improved Jj score by 10% in 4 weeks for improved functional mobility. Pt will demonstrate ability to complete ADLs with min to no pain in 4 weeks for return to PLOF. Pt will demonstrate ability to ambulate with min to no pain in 4 weeks for return to PLOF and improved access to the community. Treatment Plan: Modalities to reduce pain, spasms and effusion. Manual therapy to restore motion and function. Therapeutic exercise to improve strength and flexibility. Neuromuscular re-education for posture and balance. Therapeutic activities to return to functional activities of daily living. Electronically signed by: Martine Starks, PT, DPT, ATC Please sign and return to therapist. Thank you for your referral.
--- NOTE | 2025-07-27 10:52 | MHC.PT.DC ---
[facility] [place] Office [place] Office [place] Office [address] Sandra Greene [address] [phone] F: [phone] F: [phone] F: [phone] F: [phone] Physical Therapy Discharge Report Diagnosis: LBP Date of Surgery: n/a Date of Evaluation: 06/29/25 Date of Discharge: 07/27/25 Treatments to Date: 8 Cancellations to Date: 0 No Shows to Date: 0 Discharge Status: Recommend MD Follow-up Discharge Summary: 07/27/2025: Pt has made minimal to no progress since start of care. When he does have some low level relief from the session it does not appear to last longer than a couple hours before pain returns. Today his pain/sx are actually a little worse due to a long drive yesterday. At time time we have trialed a variety of different interventions all without significant relief. Max benefits of PT have been provided and it is no longer appropriate to continue. I recommend he follow up with his provider for further management of his pain. He is in agreement with d/c and understanding of my recommendation. Electronically signed by: Martine Starks, PT, DPT, ATC Please sign and return to therapist. Thank you for your referral.
== END 2025-07-27 10:52 | disposition home or self-care (01) ==
LOC: HO.PTCHIC 10:00
PROVIDERS: Visit Provider Physician Assistant
DX: M54.42 Lumbago with sciatica, left side (principal); M54.41 Lumbago with sciatica, right side; M51.360 Other intervertebral disc degeneration, lumbar region with discogenic back pain only
CPT/HCPCS: 97110; 97140; 97161

== ENCOUNTER 2025-08-10 13:31 | Outpatient (AMB) | payer OTHER, SELFPAY ==
--- NOTE | 2025-08-10 13:35 | A.SPINEOV_ITS ---
Intake Visit Reasons: Follow up after PT Intake Note: Mr. Cortez is here today for a F/u after PT. Gambling Box Person Required: No Allergies No Known Allergies Allergy (Verified 08/10/25 13:36) Assessment & Plan Assessment & Plan (1) Low back pain: Code(s): M54.50 - Low back pain, unspecified Category: Medical Qualifiers: Chronicity: unspecified Back pain laterality: bilateral Sciatica pre sence: with sciatica Sciatica laterality: bilateral sciatica Qualified Code(s): M54.42 - Lumbago with sciatica, left side; M54.41 - Lumbago with sciatica, right side Plan Dear colleague, On 08/10/2025, I saw for follow-up Odessa hoffman. 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 He does get radiation down the posterior thigh on the le ft side but the pain does not go below the knee. Therefore I do not think he is symptomatic from the pseudoarthrosis. We requested an MRI of the lumbar spine which was denied for lack of physical therapy. In the meantime, he had 8 weeks of physical therapy and reports no relief. He continues the same exercises at home without alleviation of the severe back pain. Therefore we will resubmit for an MRI of the lumbar spine in preparation for possibility of an L5-S1 lumbar fusion. I spent 20 minutes in his consult to review imaging and discussing plan of care. Anderson Sorto MD, PhD Spine Fellowship Trained Neurosurgeon Director, [facility] Coding Level of Care Code Est Pt Level 3 (36766) Diagnoses Bilateral low back pain with bilateral sciatica, unspecified chronicity M54.42; M54.41 Chronicity: unspecified Back pain laterality: bilateral Sciatica presence: with sciatica Sciatica laterality: bilateral sciatica
== END 2025-08-10 13:44 | disposition home or self-care (01) ==
LOC: HO.HNS 13:32
PROVIDERS: Visit Provider Neurological Surgery
DX: M54.42 Lumbago with sciatica, left side (principal); M54.41 Lumbago with sciatica, right side
CPT/HCPCS: 99213

== ENCOUNTER → 2025-08-10 13:31 | Outpatient (BNVA) | payer OTHER, SELFPAY | PROVIDERS: Visit Provider Neurological Surgery | DX: M54.41 Lumbago with sciatica, right side (principal); M54.42 Lumbago with sciatica, left side | CPT/HCPCS: 99212 ==

== ENCOUNTER 2025-08-17 08:50 | Outpatient (AMB) | payer OTHER, SELFPAY ==
--- NOTE | 2025-08-17 09:14 | A.OFFPC_ITS ---
Vital Signs 08/17/25 09:20 Height 5 ft 6 in Weight 238 lb 6 oz BMI 38.5 BP 122/88 Blood Pressure Location Lt brachial Position Sitting Respiration 18 Pulse 74 Pulse Source Pulse Oximeter Temp Source Temporal Artery Scan Pulse Oximetry (%) 96 Oxygen Delivery Method Room Air Intake Visit Reasons: htn/hld/vitd D [employer] Internship Required: No Accompanied by: Self / Same As Patient Allergies No Known Allergies Allergy (Verified 08/17/25 09:30) Medication List - Last Reconciled 08/17/25 by DEANNA Esquivel amlodipine 5 mg PO DAILY cholecalciferol (vitamin D3) 50 mcg PO DAILY rosuvastatin 5 mg PO DAILY tamsulosin 0.8 mg (2 x 0.4 mg) PO BEDTIME Tobacco use date assessed: 08/17/25 Dental Screening Dental Screen Date: 08/17/25 Did you have a dental visit in the last 12 months?: No Did you have a dental problem in the last 6 months where you did not have access to dental care?: No Was dental information given to patient?: No HPI htn/hld/vitd D HPI Details The patient is a 40 year old male presenting for a follow-up visit for management of chronic conditions, including hypercholesterolemia. He was supposed to have had blood work done prior to this appointment to recheck his cholesterol, but he did not complete it, having confused a blood pressure check with the required lab draw. His last LDL cholesterol level was 188 mg/dL, and he has been taking a cholesterol medication since then. The patient reports ongoing issues with nocturia, stating that he still urinates just as much as before despite having been on Flomax. His prescription for Flomax ran out, and he describes its efficacy as variable; some days it seemed to work, while other days it felt like he had not taken it at all, even though he had. He reports trying to avoid drinking fluids close to bedtime to manage the nocturia, but still gets up 5-6 times a night on some nights, and only once on others. He complains of feeling super exhausted and sluggish. He reports having trouble falling asleep, often staying up until 2:00 or 3:00 AM and then waking at 6:00 AM. Even on nights when he gets good rest, he still feels tired upon waking. He admits that he does snore. The patient has been experiencing back pain, which worsens with weight gain and improves with weight loss. This pain, along with his fatigue, has limited his mobility. He has gained weight, from 222 or 228 lbs at his last visit to 238 lbs at this visit. Regarding his diet, the patient states he has cut out sodas and does not eat snacks, chips, candy, or chocolate. He sometimes eats fast food, including fried foods, about twice a week, and occasionally eats late due to work. He has a history of kidney stones. The patient is on amlodipine for blood pressure. [facility] Medical History Low back pain Frequent urination Surgical History No pertinent past surgical history Social History Household Members: Family Household Members Other:: two children Housing: House Alcohol intake: current Alcohol intake frequency: a few times a week Patient Tobacco Use Status: Never used Tobacco e-Cigarette/Vaping Use: Currently Using Second Hand Smoke Exposure: No service: No Current occupational status: unemployed Cognitive needs: No Hearing needs: No Vision needs: Yes (Glasses) Questionnaire Thrive Questionnaire Date Thrive assessed: 08/17/25 I am a: Patient What is your living situation today?: I have a steady place to live Within the past 12 months, did the food you bought not last and you didn't have the money to get more?: Never true Within the past 12 months, did you worry whether your food would run out before you got money to buy more?: Never true Do you have trouble paying for medicines?: I choose not to answer this question Do you have trouble getting transportation to medical appointments?: No Do you have trouble paying your heating and electricity bill?: No Do you have trouble taking care of your child, family member or friend?: No Do you have trouble with day-to-day activities such as bathing, preparing meals, shopping, managing finances, etc.?: No Are you currently unemployed and looking for a job?: Yes Are you interested in more education?: No Please select the resources that you would like help with: None Currently or been in a relationship where the following occur: No concerns reported THRIVE Score: 0 DIMITRI-7 AMB Questionnaire DIMITRI-7 Date DIMITRI - 7 assessed: 02/18/25 Source: Developed by Drs. Rhys Kan, Juani Iglesias, Brandon Hernandes and colleagues, with an educational reno from [employer]. Review of Systems Const Denies headache(s) Eyes Denies loss of vision ENT Denies vertigo, Denies dizziness, Denies headache(s) and Denies sore throat Card Denies chest pain, Denies leg edema and Denies lightheadedness Resp Denies cough, Denies hemoptysis and Denies wheezing GI Denies abdominal pain, Denies melena, Denies constipation, Denies diarrhea and Denies vomiting Denies dysuria, Denies urinary frequency and Denies urinary urgency Musc Reports back pain, Denies arthralgias, Denies joint swelling, Denies numbness and Denies tingling Neuro Denies Abnormal speech present, Denies behavioral changes, Denies vertigo, Denies dizziness, Denies headache(s), Denies loss of vision, Denies memory loss, Denies numbness and Denies tingling Psych Denies anxiety, Denies behavioral changes, Denies depression, Denies memory loss and Denies panic attacks Samy/Lymph Denies easy bleeding and Denies easy bruising Aller/Immun Denies wheezing Physical exam (Primary Care) Vital Signs: Last Vital Signs Pulse 74 08/17/25 09:20 Resp 18 08/17/25 09:20 BP 142/62 H 08/17/25 09:20 Pulse Ox 96 08/17/25 09:20 Oxygen Delivery Method Room Air 08/17/25 09:20 BMI result Body Mass Index 38.5 Tobacco/Smoking Status: Tobacco use Status Tobacco use date assessed 08/17/25 08/17/25 09:25 Patient Tobacco Use Status Never used Tobacco 08/17/25 09:16 e-Cigarette/Vaping Use Currently Using 08/17/25 09:16 Thrive Assessment: Date of Thrive Assessment Date Thrive assessed 08/17/25 08/17/25 09:25 Currently or been in a relationship where the following occur: No concerns reported Const General: healthy appearing, no acute distress, alert and awake Nutritional Appearance: well nourished Orientation/consciousness: oriented to person, oriented to place and oriented to time HENMT Ears: TM's normal bilaterally General nose exam: Normal nasal mucous membranes and turbinates present Eyes Conjunctivae: conjunctivae normal Sclerae: sclerae normal Pupils: Equal, round and reactive pupils present Neck Neck: Yes no lymphadenopathy and Yes no JVD Thyroid: Thyroid normal Carotids: no bruits Resp Effort & Inspection: normal respiratory effort and not tachypneic Auscultation: no crackles, no rales, no rhonchi and no wheezes Cardio Rate: regular rate Rhythm: regular rhythm Heart sounds: no murmurs and normal S1 and S2 GI Palpation (GI): Soft to palpation, nontender, no hepatomegaly and no splenomegaly Auscultation: normal bowel sounds General: Yes CVA tenderness Back/Spine/Pelvis Back: CVA tenderness Thoracic/Lumbar Spine: lumbar spinal tenderness Skin General skin exam: no rashes or lesions noted and dry skin Neuro General: oriented to person, oriented to place, oriented to time and CN's II-XI intact bilaterally Cranial nerves: Yes Equal, round and reactive pupils present Speech: No Abnormal speech present Gait exam (Neuro): Normal gait present Motor exam (neuro): no tremor noted Extrem Right upper extremity: full ROM Left upper extremity: full ROM Right lower extremity: full ROM; no edema Left lower extremity: full ROM; no edema Psych Mental Status: mental status grossly normal Speech and movement: Normal speech and movement present Affect: normal affect Attitude: cooperative Thought process: Normal thought process present Coding Level of Care Code Est Pt Level 4 (36041) Diagnoses Fatigue, unspecified type R53.83 Fatigue type: unspecified Bilateral low back pain with bilateral sciatica, unspecified chronicity M54.42; M54.41 Chronicity: unspecified Back pain laterality: bilateral Sciatica presence: with sciatica Sciatica laterality: bilateral sciatica Elevated red blood cell count R71.8 Frequent urination R35.0 Vitamin D deficiency E55.9 Excessive urine production R35.89 Hyperlipidemia, unspecified hyperlipidemia type E78.5 Hyperlipidemia type: unspecified Spinal stenosis, lumbar region with neurogenic claudication M48.062 Time Spent (min) 38 Assessment & Plan Assessment & Plan (1) Fatigue: Code(s): R53.83 - Other fatigue Category: Medical Qualifiers: Fatigue type: unspecified Qualified Code(s): R53.83 - Other fatigue Plan: Patient reports fatigue on previous visit. Labs completed The patient testosterone was within normal limits. Vitamin-D mildly low and vitamin-D supplements started. The patient isn't anemic and his thyroid function is within normal limits. The patient continues to c/o daytime drowsiness, snoring, the patient neck circumference 22 cm and his BMI have been him at high risk for obstructive sleep apnea. We will order in-home sleep study to further evaluate this. (2) Low back pain: Code(s): M54.50 - Low back pain, unspecified Category: Medical Qualifiers: Chronicity: unspecified Back pain laterality: bilateral Sciatica presence: with sciatica Sciatica laterality: bilateral sciatica Qualified Code(s): M54.42 - Lumbago with sciatica, left side; M54.41 - Lumbago with sciatica, right side Plan: Ongoing lower back pain found to have a mildly narrow space between L5 and S1. PT eval placed. Patient also have a kidney stone and he has been followed by Urology. (3) Elevated red blood cell count: Code(s): R71.8 - Other abnormality of red blood cells Category: Medical Plan: RBCs slightly elevated. Increase fluid hydration. The patient has not completed follow up labs as yet. Encouraged the patient to get this done as soon as possible. (4) Frequent urination: Code(s): R35.0 - Frequency of micturition Category: Medical Plan: Patient was found to have kidney stones in ED. Patient was started on Flomax with relief some nights and then some nights the patient reports much relief. He has ran out of the Flomax. We will refill Flomax that of the patient follow up with Urology as scheduled. (5) Vitamin D deficiency: Code(s): E55.9 - Vitamin D deficiency, unspecified Category: Medical Plan: Continue vitamin-D supplement (6) Excessive urine production: Code(s): R35.89 - Other polyuria Category: Medical Plan: Patient went into the emergency room on 04/01/2025 for left flank pain and abdominal pain CT of the abdomen and pelvis showed small 2 mm left ureter stone improved after IV fluids and pain medication patient was discharged and referred to Urology. Follow up with Urology as scheduled. (7) HLD (hyperlipidemia): Code(s): E78.5 - Hyperlipidemia, unspecified Category: Medical Qualifiers: Hyperlipidemia type: unspecified Qualified Code(s): E78.5 - Hyperlipidemia, unspecified Plan: Triglycerides 114, total cholesterol 248, LDL 188, HDL 38 Discussed lifestyle modifications including dietary changes and physical activity Patient did not complete preordered labs as yet. Encouraged the patient to get this done as soon as possible for further evaluation. (8) Spinal stenosis, lumbar region with neurogenic claudication: Code(s): M48.062 - Spinal stenosis, lumbar region with neurogenic claudication Category: Medical Plan: Patient had lumbar x-ray done on 02/21/2025 that showed transitional L5 vertebral body. 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 There is mild mechanical degeneration of the medial aspects of the pseudoarticulation and there is mildly narrowed L5 to S1 disc space. The patient saw the orthopedic cast specialist and was ordered an MRI which was denied due to lack of physical therapy. The patient does currently doing physical therapy at this time without much relief. Follow up with orthopedic cast specialist as scheduled. Orders: Orders RT home sleep study Today G47.33 - Obstructive sleep apnea (adult) (pediatric) Medications: New tamsulosin 0.8 mg (2 x 0.4 mg) PO BEDTIME 90 caps 3RF
[2025-08-17 09:20] VITALS: BP 122/88; PULSE 74; RESP 18; O2SAT 96; BMI 38.5
== END 2025-08-17 09:53 | disposition home or self-care (01) ==
LOC: HO.HMCH 08:50
DX: R53.83 Other fatigue (principal); M54.42 Lumbago with sciatica, left side; M54.41 Lumbago with sciatica, right side; R71.8 Other abnormality of red blood cells; R35.0 Frequency of micturition; E55.9 Vitamin D deficiency, unspecified; R35.89 Other polyuria; E78.5 Hyperlipidemia, unspecified; M48.062 Spinal stenosis, lumbar region with neurogenic claudication

== ENCOUNTER → 2025-08-17 08:50 | Outpatient (BNVA) | payer OTHER, SELFPAY | DX: M54.41 Lumbago with sciatica, right side (principal); M54.42 Lumbago with sciatica, left side; R53.83 Other fatigue; R71.8 Other abnormality of red blood cells; R35.0 Frequency of micturition; E55.9 Vitamin D deficiency, unspecified; R35.89 Other polyuria; E78.5 Hyperlipidemia, unspecified; M48.062 Spinal stenosis, lumbar region with neurogenic claudication | CPT/HCPCS: 99212 ==

== ENCOUNTER 2025-09-06 19:44 | Outpatient (REF) | payer OTHER, SELFPAY ==
--- NOTE | ~2025-09-06 | MR_ITS ---
EXAMINATION: MR LUMBAR SPINE WITHOUT CONTRAST CLINICAL INFORMATION: Limited ankle with left-sided pain. COMPARISON: Lumbar spine x-ray 02/21/2025. TECHNIQUE: MRI of the lumbar spine was obtained using routine sequences without contrast. FINDINGS: There is maintained lumbar lordosis. The vertebral heights, alignment and disc heights are normal. The disc signal is preserved as well. Small disc is seen at the L5-S1 disc level. There is no evidence of disc bulge, herniation or spinal canal stenosis at any of the disc levels. The duodenal foramina patent bilaterally at all disc levels. Incidental finding is made of a right extraspinal synovial cyst at the L4-5 disc level. Cyst measures approximately 7.2 x 7.2 mm. The bone marrow signal and the paravertebral soft tissues are normal. Conus medullaris terminates at L1 and appears normal in morphology. MR/MR lumbar spine wo con IMPRESSION: Extraspinal right synovial cysts at the L4-5 disc level. It causes no nerve root compression. Rest of the MRI lumbar spine is unremarkable. Electronically signed by: Reji Rodriguez MD 09/07/2025 07:49 AM ADRIANE
== END 2025-09-06 19:45 | disposition home or self-care (01) ==
LOC: HO.MRI 19:44
PROVIDERS: Visit Provider Physician Assistant
DX: M54.41 Lumbago with sciatica, right side (principal); M54.42 Lumbago with sciatica, left side
CPT/HCPCS: 72148

== ENCOUNTER → 2025-09-06 19:44 | Outpatient (BNV) | payer OTHER, SELFPAY | PROVIDERS: Visit Provider Radiology Diagnostic Radiology | DX: M71.38 Other bursal cyst, other site (principal) | CPT/HCPCS: 72148 ==